=== PATIENT | female | born 1945 | race Caucasian/White ===

== ENCOUNTER 2016-07-21 16:16 | Observation (INO) | payer MEDICARE, OTHER ==
[2016-07-21] MEDS ORDERED: ASPIRIN TABLET 325 MG TAB PO ONE (16:19)
[2016-07-21] MEDS ORDERED: NITROGLYCERIN 0.4 MG 25 EA TAB SL ONE (16:19)
[2016-07-21] MEDS ORDERED: ONDANSETRON INJ 4 MG/2 ML VIAL IV ONE (16:19)
--- NOTE | 2016-07-21 17:31 | ED.PDOC ---
History of Present Illness - General Chief Complaint: Chest Pain/CO Stated Complaint: as above Time Seen by Provider: 07/21/16 16:51 Source: patient Exam Limitations: no limitations - History of Present Illness Initial Comments: She stated her symptoms of sharp chest pain raditing to her back and throat started yesterday doing house work lasting for about 2 hours then went away.But this morning had same but stated getting worse. Timing/Duration: other - 2 days Severity: moderate - 1 1/2 days ago Location: central Activities at Onset: activity Prior Chest Pain/Cardiac Workup: no prior chest pain, no prior cardiac workup Improving Factors: nothing Worsening Factors: nothing Nitro Today/Relief: no nitro taken today, provided by ED Aspirin Treatment Today: provided by ED Associated Symptoms: shortness of breath Allergies/Adverse Reactions: Allergies NO KNOWN ALLERGY Allergy (Verified 07/21/16 18:05) Home Medications: Ambulatory Orders Citalopram Hydrobromide [Celexa] 10 mg PO BEDTIME 07/21/16 Estrogens, Conjugated [Premarin] 1.25 mg PO DAILY 07/21/16 Famotidine [Pepcid Tab] 20 mg PO DAILY PRN 07/21/16 Pantoprazole Sodium [Protonix] 40 mg PO DAILY 07/21/16 Review of Systems - Review of Systems Constitutional: States: no symptoms reported EENTM: States: no symptoms reported Respiratory: States: no symptoms reported Cardiology: States: see HPI Gastrointestinal/Abdominal: States: no symptoms reported Genitourinary: States: no symptoms reported Musculoskeletal: States: no symptoms reported Skin: States: no symptoms reported Neurological: States: no symptoms reported Endocrine: States: no symptoms reported Hematologic/Lymphatic: States: no symptoms reported Past Medical History (General) - Patient Medical History Hx Gastroesophageal Reflux: Yes Hx Other PMH: Yes - anxiety ,postmenopausal symptoms Surgical History: other - TAHBSO,blepharoplasty Family Medical History - Family History Father Hx Family Cancer: Yes - cervical-mother; penile-dad Physical Exam - Physical Exam General Appearance: Alert, No apparent distress Eyes, Ears, Nose, Throat Exam: PERRL/EOMI, normal ENT inspection, TMs normal, pharynx normal Neck: non-tender, full range of motion, supple, normal inspection Respiratory: chest non-tender, lungs clear, normal breath sounds Cardiovascular/Chest: normal peripheral pulses, regular rate, rhythm, no edema, no gallop Peripheral Pulses: radial,right: 2+, radial,left: 2+ Gastrointestinal/Abdominal: normal bowel sounds, non tender, soft Extremity: normal range of motion, non-tender, normal inspection Neurologic: no motor/sensory deficits, alert, normal mood/affect, oriented x 3 Skin Exam: normal color, warm/dry, cyanosis Lymphatic: no adenopathy Progress - Results/Orders Results/Orders: 07/21/16 16:19 Telemetry .ONCE EKG Stat Pulse Ox Stat Chest,1 View [RAD] Stat Laboratory Results WBC 7.2 K/mm3 (4.8-10.8) 07/21/16 16:29 RBC 4.83 M/mm3 (4.20-5.40) 07/21/16 16:29 Hgb 14.5 gm/dL (12.0-16.0) 07/21/16 16:29 Hct 43.5 % (36.0-47.0) 07/21/16 16:29 MCV 90.0 fl (81.0-99.0) 07/21/16 16:29 MCH 30.0 pg (27.0-31.0) 07/21/16 16:29 MCHC 33.3 g/dL (33.0-37.0) 07/21/16 16:29 RDW 13.3 % (11.5-14.5) 07/21/16 16:29 Plt Count 250 K/mm3 (130-400) 07/21/16 16:29 MPV 8.1 fl (7.40-10.4) 07/21/16 16:29 Absolute Neuts (auto) 4.40 K/uL (1.8-6.8) 07/21/16 16:29 Absolute Lymphs (auto) 2.00 K/uL (1.0-3.4) 07/21/16 16:29 Absolute Monos (auto) 0.40 K/uL (0.2-0.8) 07/21/16 16:29 Absolute Eos (auto) 0.20 K/uL (0.0-0.4) 07/21/16 16:29 Absolute Basos (auto) 0.10 K/uL (0.0-0.1) 07/21/16 16:29 Neutrophils % 61.8 % (42.0-78.0) 07/21/16 16:29 Lymphocytes % 28.2 % (20.0-50.0) 07/21/16 16:29 Monocytes % 6.1 % (2.0-9.0) 07/21/16 16:29 Eosinophils % 2.9 % (1.0-5.0) 07/21/16 16:29 Basophils % 1.0 % (0.0-2.0) 07/21/16 16:29 PT 9.8 SECONDS (9.4-12.5) 07/21/16 16:29 INR 0.860 07/21/16 16:29 PTT (SP) 37.5 SECONDS (25.1-36.5) H 07/21/16 16:29 Sodium 139 mmol/L (135-145) 07/21/16 16:29 Potassium 4.5 mmol/L (3.6-5.0) 07/21/16 16:29 Chloride 103 mmol/L (101-111) 07/21/16 16:29 Carbon Dioxide 30 mmol/L (21-31) 07/21/16 16:29 Anion Gap 10.5 (12-18) L 07/21/16 16:29 BUN 14 mg/dL (7-18) 07/21/16 16:29 Creatinine 1.01 mg/dL (0.6-1.3) 07/21/16 16:29 BUN/Creatinine Ratio 13.9 (10-20) 07/21/16 16:29 Random Glucose 102 mg/dL (70-105) 07/21/16 16:29 Serum Osmolality 278.2 mOsm/L (275-295) 07/21/16 16:29 Calcium 9.2 mg/dL (8.4-10.2) 07/21/16 16:29 Magnesium 2.2 mg/dL (1.8-2.5) 07/21/16 16:29 Creatine Kinase 60 IU/L (26-140) 07/21/16 16:29 CK-MB (CK-2) 1.6 ng/mL (0.0-4.4) 07/21/16 16:29 CK-MB (CK-2) % Not Reportable 07/21/16 16:29 Troponin I < 0.02 ng/mL (0.01-0.05) 07/21/16 16:29 B-Natriuretic Peptide 102.0 pg/ml (0-100) H 07/21/16 16:29 - EKG/XRAY/CT EKG: nonspecific ST T wave Chg CT: CTA-posterior right lower lobe pulmonary embolus CT Interpretation Call Back: Yes Departure - Departure Clinical Impression: Pulmonary embolus, right Chest pain Qualifiers: Chest pain type: chest pain on breathing Qualifier Code: (R07.1) Chest pain on breathing Time of Disposition: 22:25 - D/W Magdiel Schuster-ANP/Hospitalist Disposition: Admit Patient Departure Forms: ED Discharge - Pt. Copy, Patient Portal Self Enrollment Home Medications: Ambulatory Orders Citalopram Hydrobromide [Celexa] 10 mg PO BEDTIME 07/21/16 Estrogens, Conjugated [Premarin] 1.25 mg PO DAILY 07/21/16 Famotidine [Pepcid Tab] 20 mg PO DAILY PRN 07/21/16 Pantoprazole Sodium [Protonix] 40 mg PO DAILY 07/21/16
[2016-07-21] MEDS ORDERED: NITROGLYCERIN 0.4 MG/HR PATCH TOP ONE (17:39)
--- NOTE | 2016-07-21 17:59 | RAD ---
EXAM DESCRIPTION: XR CHEST 1 VIEW CLINICAL HISTORY: 70-year-old female with anterior chest wall pain. No shortness of Breath. COMPARISON: None. TECHNIQUE: Single AP view of the chest was obtained portably. FINDINGS: The cardiac mediastinal silhouette is within normal limits. Heart size is normal. The lungs are clear without discrete focal opacity, pleural effusion or pneumothorax. The osseous structures are within normal limits. IMPRESSION: No acute cardiopulmonary abnormalities. Electronically signed by: Shahana Sullivan MD 07/21/2016 17:57
--- NOTE | 2016-07-21 19:33 | CT ---
EXAM DESCRIPTION: CT CHEST ANGIOGRAPHY WITH IV CONTRAST CLINICAL HISTORY: 70-year-old female with mid chest pain and elevated D-dimer. COMPARISON: None. TECHNIQUE: CT angiography of the pulmonary arteries was performed following intravenous administration of contrast. Coronal and bilateral oblique maximum intensity projections (MIPS) were created. FINDINGS: Evaluation through the lungs reveals no focal opacity, pleural effusion or pneumothorax. There is minimal dependent basilar atelectasis and scarring. The tracheobronchial airways are patent. No significant mediastinal or axillary lymphadenopathy by CT measurement criteria. Incidentally noted nodule within the inferior pole of the right lobe thyroid gland measuring 12 x 7 mm. Based on size and age criteria, no imaging followup is recommended per current practice guidelines. Limited evaluation of the upper abdomen shows no acute intra-abdominal abnormalities. The osseous structures reveal degenerative change. CT angiography: Nondiagnostic CT angiography of the pulmonary arteries secondary to loss of IV access during the examination and non opacification of the pulmonary arteries. IMPRESSION: 1. Nondiagnostic CT angiography of the pulmonary arteries secondary to loss of IV access during the examination and non opacification of the pulmonary arteries. 2. The lungs are clear without focal opacity, pleural effusion or pneumothorax. 3. No specific findings are noted to suggest etiology of the patient's chest pain and shortness of breath. Electronically signed by: Shahana Sullivan MD 07/21/2016 19:31
[2016-07-21] MEDS ORDERED: SODIUM CHLORIDE 0.9% 1000ML 1,000 ML IVS PRN (20:12)
[2016-07-21] MEDS ORDERED: HYDROcodone 7.5MG/APAP 325MG 1 EA TAB PO ONE (21:45)
--- NOTE | 2016-07-21 22:00 | CT ---
EXAM DESCRIPTION: CT CHEST ANGIOGRAPHY WITH IV CONTRAST CLINICAL HISTORY: 70-year-old female with chest pain and abnormal D-dimer. COMPARISON: CT chest 07/21/2016. 1839 hr. TECHNIQUE: CT angiography of the pulmonary arteries was performed following intravenous administration of contrast. Coronal and bilateral oblique maximum intensity projections (MIPS) were created. FINDINGS: Evaluation through the lungs reveals no focal opacity, pleural effusion or pneumothorax. There is minimal dependent basilar atelectasis and scarring. The tracheobronchial airways are patent. No significant mediastinal or axillary lymphadenopathy by CT measurement criteria. Incidentally noted nodule within the inferior pole of the right lobe thyroid gland measuring 12 x 7 mm. Based on size and age criteria, no imaging followup is recommended per current practice guidelines. Limited evaluation of the upper abdomen shows no acute intra-abdominal abnormalities. The osseous structures reveal degenerative change. CT angiography: Repeat examination performed secondary to prior contrast extravasation. Again, no contrast is identified present within the main pulmonary artery raising the concern for technical difficulties with contrast bolus timing. Contrast opacification is present within the arterial and pulmonary venous system. Given severe limitations of nondiagnostic opacification of the pulmonary arteries, a focal area of filling defect is questioned, present within the right lower lobe pulmonary artery raising the concern for distal small thrombus, (series 3 series 3, image 65 through 67). Correlation with nuclear medicine ventilation-perfusion scan may be considered for further assessment. IMPRESSION: 1. Repeat examination performed secondary to prior contrast extravasation. Again, no contrast is identified present within the main pulmonary artery raising the concern for technical difficulties with contrast bolus timing. Given severe limitations of nondiagnostic opacification of the pulmonary arteries, a focal area of filling defect is questioned, present within the right lower lobe pulmonary artery raising the concern for distal small thrombus. Correlation with nuclear medicine ventilation-perfusion scan may be considered for further assessment. 2. The lungs are clear without focal opacity, pleural effusion or pneumothorax. Electronically signed by: Shahana Sullivan MD 07/21/2016 21:57
[2016-07-21] MEDS ORDERED: SODIUM CHLORIDE 0.9% 1000ML 1,000 ML IVS ONE (22:02)
[2016-07-21] MEDS ORDERED: ASPIRIN (CHEWABLE) 81 MG TAB PO ONE (22:31)
[2016-07-21] MEDS ORDERED: ACETAMINOPHEN 325 MG TAB PO PRN (22:31)
[2016-07-21] MEDS ORDERED: NITROGLYCERIN 0.4 MG 25 EA TAB SL PRN (22:31)
[2016-07-21] MEDS ORDERED: SODIUM CHLORIDE 0.9% (FLUSH) 10 ML SYG IV PRN (22:31)
--- NOTE | 2016-07-21 22:45 | HP ---
SUPERVISING PHYSICIAN: Ekaterina Lynn MD CHIEF COMPLAINT: Chest pain, shortness of breath. HISTORY OF PRESENT ILLNESS: Ms. De La Vega is a 70-year-old, female who presented from the Emergency Room complaining of sharp chest pains that were radiating into her back and throat that started 24 hours previous to this admission when she was working around the house. It lasted about 2 hours and went away. This morning, it recurred and continued to worsen when she presented to the Emergency Department tonight. In the Emergency Department, she was found to be hypertensive with active chest pains. EKG was completed showing normal sinus rhythm with no ST changes to T-wave inversion. Laboratory studies showed cardiac enzymes to be negative with troponin less than 0.02. BNP slightly elevated at 102. Other chemistries were all within normal limits. White count was normal. She was given a nitroglycerin sublingual which resulted in significant improvement in her pain. Initial vital signs showed blood pressure 157/99 with heart rate 78. O2 saturation 95% on room air. After nitro, blood pressure decreased, pain decreased and blood pressure was 147 /65. She was satting 93% to 94%on room with pulse 62. CT of the chest was completed to rule out pulmonary embolism and per radiology interpretation, there were concerns for pulmonary embolism in the right lower lobe pulmonary artery system distal with a distal small thrombus noted. The rest of the CT showed her lungs to be clear without any focal opacities, pleural effusions, or pneumothorax. Given the degree of chest pain and concern for pulmonary embolism with unknown etiology, the patient will be admitted for continued rule out acute myocardial infarction with further investigation of DVT of lower extremities as well as initiation of anticoagulation therapy with Lovenox 1 mg/ kg q.12h. with anticipation of discharge to continue with Xarelto or other oral anticoagulation. She was admitted in stable condition. PAST MEDICAL HISTORY: 1. Seasonal allergies. 2. Gastroesophageal reflux disease. 3. Depression and anxiety. PAST SURGICAL HISTORY: 1. Hysterectomy. 2. Appendectomy in . CURRENT MEDICATIONS: 1. Pepcid 20 mg daily p.r.n. 2. Protonix 40 mg daily. 3. Premarin 1.25 mg daily. 4. Celexa 10 mg at bedtime. ALLERGIES: NO KNOWN DRUG ALLERGIES. FAMILY HISTORY: Positive for cancer and cardiovascular disease. SOCIAL HISTORY: The patient lives in [place]. She is a seventh grade teacher. She is . She denies ever smoking or drinking. REVIEW OF SYSTEMS: CONSTITUTIONAL: Denies any fevers, chills, or general malaise. HEENT: She has had a recent upper respiratory infection treated with round of Zithromax and ciprofloxacin. She denies any nasal drainage or sore throat, but does have a cough. She also notes headache that she has had off and on since June. RESPIRATORY: As noted in history of present illness, cough with some shortness of breath and chest pain. CARDIOVASCULAR: As noted in history of present illness, chest pain, no palpitations or syncopal episodes. GASTROINTESTINAL: Denies nausea or vomiting. No diarrhea, constipation, or change in bowel habits. GENITOURINARY: Denies gross hematuria , polyuria, dysuria, or urinary symptoms. NEUROLOGIC: She has headache off and on since June, treated easily with Motrin. She denies any numbness, weakness, or any other general malaise or any other focal motor deficits. PHYSICAL EXAMINATION: VITAL SIGNS: On admission to the Medical/Surgical Floor, pulse 62. Blood pressure 126/62. Respirations 16. O2 95% on nasal cannula at 1 liter. Temperature 97.0. Admission weight 92.3 kg. GENERAL: The patient is resting, in no acute distress. She said she is without any significant pain at time of exam. She is alert and oriented times three. CHEST: Lungs clear to auscultation bilaterally without any rhonchi, wheezes, or rales. CARDIOVASCULAR: Regular rate and rhythm without any appreciable murmurs, gallops, or rubs. ABDOMEN: Obese, but soft, nontender. Positive bowel sounds. EXTREMITIES: There is no cyanosis, clubbing or edema. NEUROLOGIC: The patient is alert and oriented times three. Cranial nerves II- XII are grossly intact. Facial features are symmetrical. Extraocular movements are within normal limits without nystagmus. There is no focalizing or localizing motor deficits noted. LABORATORY: CBC is within normal limits with white count 7.2, hemoglobin 14.5, hematocrit 43.5, platelet count 250,000, differential within normal limits. Coagulation studies showed an elevated D-dimer of 447, PT 9.8, PT-T 37.5. Chemistries showed electrolytes with BUN 14, creatinine 1.0, calcium 9.2, magnesium 2.2. Troponin initially was less than 0.02, CK 60. Repeat 6 hours later showed CK 48 with troponin less than 0.02. BNP elevated at 102. Amylase and lipase were both within normal limits. Urinalysis pending. EKG shows normal sinus rhythm without any ST changes or T-wave inversions, initial in the Emergency Room and again 6 hours after admission. RADIOLOGY: Chest x-ray prior to admission per radiology interpretation shows no acute cardiopulmonary abnormalities. CT of the chest was followed up given the elevated D-dimer, shortness of breath and chest pains and per radiology interpretation showed although severe limitations of nondiagnostic opacification of the pulmonary arteries, a focal area of filling defect is questioned, present within the right lower lobe pulmonary artery raising the concern for distal small thrombus. The lungs are otherwise clear without focal opacity, pleural effusion or pneumothorax noted. ASSESSMENT: 1. Chest pain with normal EKG and normal cardiac enzymes with a noted small pulmonary embolus on CTA of the chest involving the right lower lobe pulmonary artery with the patient having a history of being on Premarin for a long period of time secondary to a hysterectomy. 2. Pulmonary embolism as demonstrated on CT chest showing small pulmonary embolus in the main pulmonary artery in the right lower lobe pulmonary artery system. 3. Gastroesophageal reflux disease. 4. Seasonal allergies. PLAN: The patient will be admitted and started on anticoagulation to include Lovenox 1 mg/kg with anticipation of transitioning to most likely Xarelto, but we will wait and make the final decision after discussing the case with Dr. Hackett, her primary care physician. She will be on telemetry to further monitor cardiac as well as rule out any other acute cardiac events with repeat enzymes in the morning as well as repeat EKG. Anticipate length of stay to be 2 to 3 days. Once adequately anticoagulated with Lovenox and transitioned to p.o. medication, the patient will be discharged to followup closely in the outpatient clinic setting with Dr. Hackett, her primary care physician. Until then, we will continue to monitor the patient closely and treat appropriately. #[id number] [facility]
[2016-07-21] MEDS ORDERED: IV SET AND CAP CHANGE INJ INJ SCH (23:00)
[2016-07-21] MEDS ORDERED: ENOXAPARIN SODIUM 100 MG/ML SYG SUBCU ONE (23:20)
[2016-07-21] MEDS ORDERED: TEMAZEPAM 15 MG CAP PO PRN (23:35)
[2016-07-22] MEDS ORDERED: ENOXAPARIN SODIUM 100 MG/ML SYG SUBCU ONE (07:15)
[2016-07-22] MEDS ORDERED: SODIUM CHLORIDE 0.9% (FLUSH) 10 ML SYG IV SCH (09:00)
[2016-07-22] MEDS ORDERED: ENOXAPARIN SODIUM 100 MG/ML SYG SUBCU SCH (11:00)
--- NOTE | 2016-07-22 14:00 | US ---
EXAM DESCRIPTION: US LOWER EXTREMITY VEINS LIMITED/UNILATERAL/FOLLOW UP CLINICAL HISTORY: PE COMPARISON: None. TECHNIQUE: 2D grayscale and color venous duplex Doppler evaluation of the lower extremity are obtained from groin to calf. FINDINGS: There is normal flow, augmentation to flow, and compressibility of the deep venous vasculature of the left lower extremity with no ultrasound evidence of deep venous thrombosis. IMPRESSION: No ultrasound evidence of deep venous thrombosis . Electronically signed by: Shawn Thornton MD 07/22/2016 13:58
--- NOTE | 2016-07-22 14:01 | US ---
EXAM DESCRIPTION: US LOWER EXTREMITY VEINS LIMITED/UNILATERAL/FOLLOW UP CLINICAL HISTORY: PE COMPARISON: None. TECHNIQUE: 2D grayscale and color venous duplex Doppler evaluation of the lower extremity are obtained from groin to calf. FINDINGS: There is normal flow, augmentation to flow, and compressibility of the deep venous vasculature of the right lower extremity with no ultrasound evidence of deep venous thrombosis. IMPRESSION: No ultrasound evidence of deep venous thrombosis . Electronically signed by: Shawn Thornton MD 07/22/2016 13:58
[2016-07-22 14:23] VITALS: O2SAT 88
[2016-07-22] MEDS ORDERED: RIVAROXABAN 15 MG TAB PO SCH (14:30)
[2016-07-22 14:42] VITALS: BP 130/70; TEMP 98.4
--- NOTE | 2016-07-29 10:06 | DS ---
SUPERVISING PHYSICIAN: Ekaterina Lynn MD DISCHARGE DIAGNOSIS: 1. Chest pain with normal EKG and normal cardiac enzymes with a noted small pulmonary embolus on CTA of the chest involving the right lower lobe pulmonary artery with the patient having a history of being on Premarin for a long period of time secondary to a hysterectomy. The patient was started on anticoagulation at time of discharge. 2. Pulmonary embolism as demonstrated on CT chest showing small pulmonary embolus in the main pulmonary artery in the right lower lobe pulmonary artery system. 3. Gastroesophageal reflux disease. 4. Seasonal allergies. HISTORY OF PRESENT ILLNESS: Ms. De La Vega is a 70-year-old, female who presented from the Emergency Room complaining of sharp chest pains that were radiating into her back and throat that started 24 hours previous to this admission when she was working around the house. The pain lasted about 2 hours and went away. This morning, the pain recurred and continued to worsen when she presented to the Emergency Department. In the Emergency Department, she was found to be hypertensive with active chest pains. EKG was completed showing normal sinus rhythm with no ST changes or T-wave inversions. Laboratory studies showed cardiac enzymes to be negative with troponin less than 0.02. BNP slightly elevated at 102. Other chemistries were all within normal limits. White count was normal. She was given a nitroglycerin sublingual which resulted in significant improvement in her pain. Initial vital signs showed blood pressure 157/99 with heart rate 78. O2 saturation 95% on room air. After nitro, blood pressure decreased, pain decreased and blood pressure was 147/65. She was satting 93% to 94%on room with pulse 62. CT of the chest was completed to rule out pulmonary embolism and per radiology interpretation, there were concerns for pulmonary embolism in the right lower lobe pulmonary artery system distal with a distal small thrombus noted. The rest of the CTA showed her lungs to be clear without any focal opacities, pleural effusions, or pneumothorax. Given the degree of chest pain and concern for pulmonary embolism with unknown etiology, the patient will be admitted for continued treatment and to rule out acute myocardial infarction with further investigation of DVT of lower extremities as well as initiation of anticoagulation therapy with Lovenox 1 mg/kg q.12h. with anticipation of discharge to continue with Xarelto. She was admitted in stable condition. LABORATORY: CBC on admission was within normal limits as well as at time of discharge. ESR was 25. Coagulation studies showed D-dimer elevated at 447 with a mildly elevated PT-T of 37.5. Testing for clotting disorders is pending. Please refer to those lab results for full details. Chemistries at time of admission showed normal electrolytes with potassium 4.5. Initial troponin was less 0.02, repeated q.6h. and prior to discharge remained less than 0.02. Lipid profile was within normal limits with triglycerides 135, cholesterol 180, LDL 124, HDL 42. Amylase normal at 74 as well as lipase 33. Again, additional clotting disorder laboratory studies are pending. MICROBIOLOGY: No specimens submitted. RADIOLOGY: Initial chest x-ray in the Emergency Department radiology interpretation showed no acute cardiopulmonary abnormalities. CT of the chest rule out pulmonary embolism per radiology interpretation showed no contrast identified present within the main pulmonary artery raising concern for technical difficulty focal area of filling defect questioned present within the right lower lobe pulmonary artery raising the concern for distal small thrombus. The lungs are otherwise clear without focal opacity, pleural effusion or pneumothorax noted. Please refer to final report for full details. Doppler of both lower extremities were negative for any DVT per radiology interpretation. HOSPITAL COURSE: Ms. De La Vega was admitted on 07/21/16 as noted for chest pains and pulmonary embolism. She had cardiac workup to include serial enzymes which were all negative. EKG showed normal sinus rhythm without any changes. Through hospitalization, there were no T-wave changes, no T-wave inversions. She remained chest pain free through hospitalization and at time of discharge. She had a lower DVT study completed that again showed no DVT and was started on pulmonary embolism treatment with Lovenox 1 mg/kg q.12h. She was stable at time of discharge including vital signs showing blood pressure 130/70, saturation 96% on room air with pulse 75. She was clinically stable and discharged to continue with inpatient treatment to include transition to Xarelto. PLAN: The patient is discharged on 07/22/16 to have close clinical followup with Dr. Hackett as scheduled. She was started on Xarelto 15 mg q.12h. for 21 days. She was given initial samples from the clinic and a prescription for continued treatment. She was told to resume all previous medications as previous to admission and return to the hospital should she have any return of her symptoms including chest pain or any significant shortness of breath. Prescriptions at time of discharge included: 1. Xarelto 15 mg q.12h., #40. 2. Nitroglycerin 0.4 mg tablets 1 tablet sublingual q.5 minutes p.r.n. and then call 911 if her chest pain did not resolve. She was given 1 bottle. #[id number] [facility]
== END 2016-07-22 15:36 | disposition home or self-care (01) ==
LOC: ER 16:16 → MS 22:44
PROVIDERS: ADMIT Nurse Practitioner Family; ATTEND Nurse Practitioner Family
DX: R07.1 Chest pain on breathing (principal); I26.99 Other pulmonary embolism without acute cor pulmonale; K21.9 Gastro-esophageal reflux disease without esophagitis; J30.2 Other seasonal allergic rhinitis; R06.02 Shortness of breath; F32.9 Major depressive disorder, single episode, unspecified; F41.9 Anxiety disorder, unspecified; Z79.899 Other long term (current) drug therapy; Z90.710 Acquired absence of both cervix and uterus; Z90.49 Acquired absence of other specified parts of digestive tract; Z82.49 Family history of ischemic heart disease and other diseases of the circulatory system
CPT/HCPCS: 36415 ×7; 71010; 71275 ×2; 80048; 80053; 80061; 81240; 81291; 82150; 82550 ×3; 82553 ×3; 82784 ×2; 83090; 83690; 83735; 83880; 83883; 84155; 84165; 84484 ×3; 85025 ×2; 85220; 85240; 85301; 85303; 85306; 85379; 85415; 85597; 85610; 85613; 85651; 85730 ×2; 86146; 93005 ×2; 93971 ×2; 94760; 96361 ×3; 96372 ×3; 96374 ×2; 99284 ×2; G0378; J1650 ×2; J2405; J7030 ×2

== ENCOUNTER → 2016-09-30 | Outpatient (CLI) | payer MEDICARE, OTHER | END | disposition home or self-care (01) | LOC: GMAJ 13:56 | PROVIDERS: ATTEND Family Medicine | DX: E03.9 Hypothyroidism, unspecified (principal) ==

== ENCOUNTER → 2016-10-24 | Outpatient (CLI) | payer MEDICARE, OTHER ==
--- NOTE | 2016-10-24 10:17 | CT ---
EXAM DESCRIPTION: CTA Chest CLINICAL HISTORY: PE COMPARISON: None available TECHNIQUE: CTA chest was performed with IV contrast including MIP and 3-D reconstructed images. This exam was performed according to our departmental dose-optimization program, which includes automated exposure control, adjustment of the mA and/or kV according to patient size and/or use of iterative reconstruction technique. FINDINGS: There is no pulmonary embolus. No thoracic aortic aneurysm or dissection. There is a subcentimeter low-density right thyroid nodule for which no further follow-up is recommended due to its small size and patient's age. No mediastinal or hilar adenopathy. No pleural or pericardial effusion. No axillary adenopathy or apparent breast lesion. There is no airspace consolidation or lung mass. The central airways are clear. Visualized portions of the upper abdomen are unremarkable for arterial phase technique. No concerning bone lesion. IMPRESSION: No evidence of pulmonary embolus or other acute intrathoracic abnormality. Electronically signed by: Nick Worley MD 10/24/2016 10:16 AM CDT
== END | disposition home or self-care (01) ==
LOC: CT 08:53
PROVIDERS: ATTEND Internal Medicine Hematology & Oncology
DX: I26.99 Other pulmonary embolism without acute cor pulmonale (principal)

== ENCOUNTER → 2016-12-04 | Outpatient (CLI) | payer MEDICARE, OTHER ==
--- NOTE | 2016-12-05 08:06 | US ---
EXAM DESCRIPTION: Soft Tissue,Head/Neck CLINICAL HISTORY: 71 years Female, ENLARGED LYMPH NODES TECHNIQUE: Grayscale and color Doppler imaging of the right aspect of the neck within the area of palpable abnormality was performed. FINDINGS: There is a small probable 9 mm lymph node noted within the area of concern superficial to the strap muscles. IMPRESSION: Probable 9 mm lymph node seen within the area of concern. This is not enlarged by size criteria. Electronically signed by: Basilio Wynne MD 12/05/2016 8:06 AM CDT
== END | disposition home or self-care (01) ==
LOC: US 10:12
PROVIDERS: ATTEND Family Medicine
DX: R59.0 Localized enlarged lymph nodes (principal)

== ENCOUNTER → 2017-05-14 | Outpatient (CLI) | payer MEDICARE, OTHER | LOC: GMAJ 15:14 | PROVIDERS: ATTEND Family Medicine | DX: D50.1 Sideropenic dysphagia (principal); D50.8 Other iron deficiency anemias ==

== ENCOUNTER → 2017-09-17 | Outpatient (CLI) | payer MEDICARE | LOC: GMAJ 10:52 | PROVIDERS: ATTEND Family Medicine | DX: E03.9 Hypothyroidism, unspecified (principal) ==

== ENCOUNTER 2017-10-03 19:34 | Emergency (ER) | payer MEDICARE ==
[2017-10-03] MEDS ORDERED: FAMOTIDINE IV PREMIX 20 MG in PREMIX BAG 1 BAG IVPB ONE (19:55)
[2017-10-03] MEDS ORDERED: EPINEPHrine HCL AMP 1 MG/ML AMP SUBCU ONE (19:55)
[2017-10-03] MEDS ORDERED: methylPREDNISolone SODIUM SUC 125 MG/2 ML VIAL IV ONE (19:55)
[2017-10-03] MEDS ORDERED: FAMOTIDINE IV PREMIX 50 ML IVPB ONE (20:00)
--- NOTE | 2017-10-03 20:41 | ED.PDOC ---
History of Present Illness - General Chief Complaint: Allergic Reaction Time Seen by Provider: 10/03/17 19:54 Source: patient Exam Limitations: no limitations Additional Information: PT STATES SHE HAS HAD INTERMITTENT ALLERGIC REACTION AND WHELPS. HAS BEEN HAVING PROBLEMS FOR 3 WEEKS. ONE SHOT OF STEROIDS PREVIOUSLY NO ORAL STEROIDS. NO IDENTIFIED ALLERGEN. - History of Present Illness Timing/Duration: other - 3 WEEKS Severity: mild Improving Factors: nothing Worsening Factors: nothing Associated Symptoms: other - SWELLING OF UPPER LIP Allergies/Adverse Reactions: Allergies NO KNOWN ALLERGY Allergy (Verified 07/21/16 18:05) Home Medications: Ambulatory Orders Citalopram Hydrobromide [Celexa] 10 mg PO BEDTIME 07/21/16 Estrogens, Conjugated [Premarin] 1.25 mg PO DAILY 07/21/16 Famotidine [Pepcid] 20 mg PO DAILY PRN 07/21/16 Pantoprazole Tablet [Protonix] 40 mg PO DAILY 07/21/16 Nitroglycerin 0.4 mg Tab [Nitrostat] 1 ea SL Q5MIN PRN #1 bttl 07/22/16 Rivaroxaban [Xarelto] 15 mg PO Q12HR #42 tab 07/22/16 Methylprednisolone [Medrol Dose Teja] 4 mg PO DAILY #1 tab 10/03/17 Review of Systems - Review of Systems Constitutional: Denies: chills, fever EENTM: States: no symptoms reported Respiratory: Denies: cough, short of breath, stridor Cardiology: Denies: chest pain, palpitations Gastrointestinal/Abdominal: Denies: nausea, vomiting Genitourinary: States: no symptoms reported Musculoskeletal: States: no symptoms reported Skin: States: no symptoms reported Neurological: States: no symptoms reported Hematologic/Lymphatic: States: no symptoms reported Past Medical History (General) - Patient Medical History Hx Seizures: No Hx Stroke: No Hx Dementia: No Hx Asthma: No Hx of COPD: No Hx Cardiac Disorders: No Hx Congestive Heart Failure: No Hx Pacemaker: No Hx Hypertension: No Hx Thyroid Disease: No Hx Diabetes: No Hx Gastroesophageal Reflux: Yes Hx Renal Disease: No Hx Cancer: No Hx of HIV: No Hx Hepatitis C: No Hx MRSA: No Surgical History: Hysterectomy - Vaccination History Hx Tetanus, Diphtheria Vaccination: Yes Hx Influenza Vaccination: No Hx Pneumococcal Vaccination: No - Social History Hx Tobacco Use: No Hx Alcohol Use: No Hx Substance Use: No Hx Substance Use Treatment: No Hx Depression: No - Triage Comment ED Triage Comment: Presents to ER--POV--Amb---c/o broke out in Hives at 1730 today. Family Medical History - Family History Father Family History: Unknown Living Status: Unknown Hx Family Cancer: Yes - cervical-mother; penile-dad Physical Exam - Physical Exam General Appearance: Alert, No apparent distress Eye Exam: bilateral normal Ears, Nose, Throat: hearing grossly normal, normal ENT inspection, normal pharynx, other - MILD SWELLING UPPER LIP NO SOFT PALATE EDEMA. Neck: non-tender, full range of motion, supple, normal inspection Respiratory: lungs clear, normal breath sounds, other - NO STRIDOR SATS 97% RA ( NL) Cardiovascular/Chest: regular rate, rhythm, no murmur Gastrointestinal/Abdominal: normal bowel sounds, non tender, soft Back Exam: normal inspection, no CVA tenderness Extremity: normal range of motion, non-tender, normal inspection Neurologic: alert, normal mood/affect Skin Exam: rash - DIFFUSE HIVES UPPER THORAX AND LEGS. Lymphatic: no adenopathy Progress - Progress Progress: 10/03/17 21:00 FEELS MUCH BETTER. NO SOB, SWELLING TO UPPER LIP ALMOST COMPLETELY RESOLVED. HIVES RESOLVED. Departure - Departure Clinical Impression: Allergic reaction Qualifiers: Encounter type: initial encounter Qualified Code(s): T78.40XA - Allergy, unspecified, initial encounter Time of Disposition: 21:13 Disposition: Discharge to Home or Self Care Condition: Good Departure Forms: ED Discharge - Pt. Copy, Patient Portal Self Enrollment Instructions: DI for General Allergic Reactions Referrals: Elvis Hackett MD [Primary Care Provider] - 1-2 Weeks Prescriptions: Methylprednisolone [Medrol Dose Teja] 4 mg PO DAILY #1 tab Home Medications: Ambulatory Orders Citalopram Hydrobromide [Celexa] 10 mg PO BEDTIME 07/21/16 Estrogens, Conjugated [Premarin] 1.25 mg PO DAILY 07/21/16 Famotidine [Pepcid] 20 mg PO DAILY PRN 07/21/16 Pantoprazole Tablet [Protonix] 40 mg PO DAILY 07/21/16 Nitroglycerin 0.4 mg Tab [Nitrostat] 1 ea SL Q5MIN PRN #1 bttl 07/22/16 Rivaroxaban [Xarelto] 15 mg PO Q12HR #42 tab 07/22/16 Methylprednisolone [Medrol Dose Teja] 4 mg PO DAILY #1 tab 10/03/17 Additional Instructions: USE EITHER PEPCID OR ZANTAC OVER THE COUNTER.
[2017-10-03 21:35] VITALS: O2SAT 96
[2017-10-03 21:56] VITALS: TEMP 98.2
[2017-10-03 21:59] VITALS: BP 133/74
== END 2017-10-03 21:50 | disposition home or self-care (01) ==
LOC: ER 19:34
DX: T78.40XA Allergy, unspecified, initial encounter (principal); K21.9 Gastro-esophageal reflux disease without esophagitis; X58.XXXA Exposure to other specified factors, initial encounter
CPT/HCPCS: J2930; J3490

== ENCOUNTER → 2018-04-13 | Outpatient (CLI) | payer MEDICARE | LOC: GMAJ 11:29 | PROVIDERS: ATTEND Family Medicine | DX: D64.9 Anemia, unspecified (principal) ==